=== PATIENT | male | born 1940 | race African-American/Black ===

== ENCOUNTER 2019-07-17 08:09 | Day surgery (SDC) | payer MEDICARE, OTHER ==
--- NOTE | 2019-07-14 12:10 | Opthalmology H&P ---
Ophthalmology H&P H&P Chief Complaint: decreased vision in left eye HPI Vision Affects Ability to: read, manage personal affairs HPI Narrative blurry vision Exam Visual Acuity: OD Counting Fingers OS 20/200 Tension: OD 19 OS 14 Eye Exam: normal OU: external exam, palpebral fissure-width, marginal reflex distance, levator function, corneas, anterior chambers, fundus exam; findings: lens - NS Cataracts OU Assessment/Plan Treatment Plan: cataract extraction w/ lens implant Goals of Treatment: improvement of vision, enhance quality of life Attestation Attestation The risks and benefits of the surgery as well as alternative procedures were explained to the patient in detail. Mc Johnston MD Jul 14, 2019 12:10
--- NOTE | 2019-07-14 12:11 | Pre-Procedure Note/Attestation ---
Pre-Procedure Note/Attestation Complete Prior to Procedure Planned Procedure: left Procedure Narrative: Cataract extraction with intraocular lens implant left eye Indications for Procedure Pre-Operative Diagnosis: Nuclear sclerotic cataract left eye Attestation I attest that I discussed the nature of the procedure; its benefits; risks and complications; and alternatives (and the risks and benefits of such alternatives ), prior to the procedure, with the patient (or the patient's legal sales representative printing supplies). I attest that, if there was a reasonable possibility of needing a blood transfusion, the patient (or the patient's legal sales representative printing supplies) was given the [facility] standardized written summary, pursuant to the [place] Blood Safety Act ([place] Health and Safety Code # 1645, as amended). I attest that I re-evaluated the patient just prior to the surgery and that there has been no change in the patient's H&P, except as documented below: Mc Johnston MD Jul 14, 2019 12:11
[~2019-07-17] VITALS: Ht 188 cm; Wt 76.2 kg
[~2019-07-17 08:09] MED LIST: Akten 3.5% 1ml Btl LEFT EYE ONE; Proparacaine 0.5% Opth Soln 15ml LEFT EYE ONE; Tetracaine 0.5% Opth 4ml Soln LEFT EYE ONE
[2019-07-17] MEDS: Cyclopentolate 1% Opth Sol 2ml LEFT EYE SCH ×3 (11:57→12:19)
[2019-07-17] MEDS: Tropicamide 1% Opth 15ml Soln LEFT EYE SCH ×3 (11:57→12:19)
[2019-07-17] MEDS: Tobramycin Op Soln 0.3% 5ml LEFT EYE SCH ×3 (11:57→12:19)
[2019-07-17] MEDS: Diclofenac Sod 0.1% Op Soln LEFT EYE SCH ×3 (11:57→12:19)
[2019-07-17] MEDS: Phenylephrine 10% Opth Soln 5ml LEFT EYE SCH ×3 (11:57→12:19)
[2019-07-17 12:21] VITALS: BP 148/74
[2019-07-17] MEDS ORDERED: SINGULAIR10 MG ORAL (12:29)
[2019-07-17] MEDS ORDERED: COMBIVENT RESPIM4 GM IH (12:29)
[2019-07-17] MEDS ORDERED: MYRBETRIQ25 MG PO (12:29)
[2019-07-17] MEDS ORDERED: GLYCOPYRROLATE1 MG PO (12:29)
[2019-07-17] MEDS ORDERED: BUPROPION HCL100 MG ORAL (12:29)
[2019-07-17] MEDS ORDERED: LINZESS290 MCG PO (12:29)
[2019-07-17] MEDS ORDERED: RISPERIDONE2 MG ORAL (12:29)
[2019-07-17] MEDS ORDERED: ASPIR 8181 MG ORAL (12:29)
[2019-07-17] MEDS ORDERED: WELLBUTRIN SR200 MG ORAL (12:29)
[2019-07-17] MEDS ORDERED: FLOMAX0.4 MG ORAL (12:29)
[2019-07-17] MEDS ORDERED: MIRALAX17 G2 ORAL (12:29)
--- NOTE | 2019-07-17 13:04 | Anethesia Preoperative Eval ---
Anesthesia Pre-op PMH/ROS General Date of Evaluation: Jul 17, 2019 Anesthesiologist: Ramakrishna ASA Score: ASA 3 Mallampati Score Class I : Soft palate, uvula, fauces, pillars visible Class II: Soft palate, uvula, fauces visible Class III: Soft palate, base of uvula visible Class IV: Only hard plate visible Mallampati Classification: Class III Surgeon: Vickie Diagnosis: left cataract Surgical Procedure: left cataract extraction with iol Anesthesia History: none Family History: no anesthesia problems Allergies: Coded Allergies: No Known Allergies (Unverified , 07/17/19) Medications: see eMAR Patient NPO?: Yes NPO Date: Jul 16, 2019 NPO Time: 22:00 Past Medical History Cardiovascular: Reports: HTN Pulmonary: Reports: asthma, COPD Gastrointestinal/Genitourinary: Reports: GERD, other - prostate cancer s/p prostatectomy Hematology/Immune: Reports: anemia PSxH Narrative: prostatectomy Anesthesia Pre-op Phys. Exam Physician Exam Last Vital Signs Date Time Temp Pulse Resp B/P (MAP) Pulse Ox O2 Delivery O2 Flow Rate FiO2 07/17/19 12:21 97.0 56 18 148/74 99 Room Air Constitutional: NAD Cardiovascular: RRR Respiratory: CTA Airway Exam Mallampati Score: Class III MO: limited ROM: limited Anesthesia Pre-op A/P Labs see chart Studies Pre-op Studies: EKG - sr Risk Assessment & Plan Assessment: ASA III Plan: MAC Status Change Before Surgery: Yes - case cancelled as patient unable to lie down flat without shortness of breath for procedure Pre-Antibiotics Drug: N/A Ashleigh Galicia MD Jul 17, 2019 13:04
[2019-07-17] MEDS ORDERED: LR 1000ml 1,000 ML IVLG SCH (13:06)
[2019-07-17] MEDS ORDERED: DiphenhydrAMINE 50mg/ml Inj IVP PRN (13:15)
[2019-07-17] MEDS ORDERED: Povidone-Iodine 5% opth solution ONE (13:46)
[2019-07-17] MEDS ORDERED: BSS 500ml btl ONE (13:46)
[2019-07-17] MEDS ORDERED: BSS 15ml BTL ONE (13:46)
[2019-07-17] MEDS ORDERED: EPINEPHrine 1mg/1ml Amp ONE (13:46)
[2019-07-17] MEDS ORDERED: Polysporin Opth Oint 3.5gm ONE (13:46)
[2019-07-17] MEDS ORDERED: Sodium Hyaluronate 14 mg/ml 0.85ml ONE (13:47)
[2019-07-17] MEDS ORDERED: Lidocaine 1% MPF 10mg/ml 5ml ONE (13:52)
[2019-07-17] MEDS ORDERED: fentaNYL 100 mcg/2 mL ONE (13:52)
--- NOTE | 2019-07-17 14:34 | NUR ---
surgery was cancelled. pt cant breath on a flat position.pt needs to see his primary physician for further work up.
== END 2019-07-17 10:09 | disposition home or self-care (01) ==
LOC: SUR 08:09
DX: H25.12 Age-related nuclear cataract, left eye (principal); Z53.8 Procedure and treatment not carried out for other reasons; I10 Essential (primary) hypertension; J44.9 Chronic obstructive pulmonary disease, unspecified; Z85.46 Personal history of malignant neoplasm of prostate; Z90.79 Acquired absence of other genital organ(s)